=== PATIENT | female | born 1945 | race Caucasian/White ===

== ENCOUNTER 2016-11-15 19:53 | Observation (INO) | payer OTHER ==
[~2016-11-15] VITALS: Ht 152.4 cm; Wt 77.0 kg
[2016-11-15 21:04] LABS: ADD MIUA? NO; BILIRUBIN NEGATIVE; BLOOD NEGATIVE; COLOR STRAW ((YELLOW)); GLUCOSE (STRIP) NEGATIVE; KETONES NEGATIVE; LEUKOCYTES NEGATIVE; NITRITE NEGATIVE; PROTEIN (STRIP) NEGATIVE; SPECIFIC GRAVITY 1.011 (1.000-1.030); UCUL ADDED? NO; UROBILINOGEN 0.2 MG/DL (0.2-1.0)
[2016-11-15 21:11] LABS: BASOPHIL COUNT 0.1 K/uL (0-0.1); EOSINOPHIL (%) 3.7 % (0-5); EOSINOPHIL COUNT 0.3 K/uL (0-0.3); HEMATOCRIT 40.3 % (36.0-46.0); IMMATURE GRANULOCYTE (%) 0.3 % (0.0-0.7); IMMATURE GRANULOCYTE COUNT 0.3 K/uL; LYMPHOCYTE COUNT 2.6 K/uL (1.0-2.8); MCH 29.2 PG (29.0-34.0); MCV 88.4 FL (83-99); MEAN PLAT.VOLUME 11.9 uM^3 (9.5-12.4); MONOCYTE (%) 7.2 % (3-12); MONOCYTE COUNT 0.6 K/uL (0-0.8); NEUTROPHIL COUNT 5.2 K/uL (1.8-6.4); PLATELET COUNT 233 K/uL (156-360); RBC DIS.WIDTH-CV 12.8 % (11.8-14.6); RBC DIS.WIDTH-SD 40.1 % (39-53); RED BLOOD COUNT 4.56 M/uL (3.80-5.20); WHITE BLOOD COUNT 8.9 K/uL (4.1-10.2)
[2016-11-15 21:40] LABS: CHLORIDE 104 mEq/L (99-109); SODIUM 143 mEq/L (136-147)
[2016-11-15 21:42] LABS: GLUCOSE 136 mg/dL (70-99)
[2016-11-15 21:43] LABS: ANION GAP 14 MEQ/L (2-14)
[2016-11-15 21:44] LABS: TOTAL BILIRUBIN 0.2 mg/dL (0.0-1.0)
[2016-11-15 21:45] LABS: ALKALINE PHOSPHATASE 65 IU/L (3-129)
[2016-11-15 21:46] LABS: GFR ESTIMATE (CALCULATED) > 59 mL/min/
[2016-11-15 21:47] LABS: UREA NITROGEN (BUN) 16 mg/dL (9-23)
[2016-11-15 21:55] LABS: TROP-I INTERPRETATION NEGATIVE; TROPONIN-I < 0.01 ng/mL (0.0-0.30)
[2016-11-15 22:29] LABS: HDL CHOLESTEROL 48 MG/DL (Desirable>=50); LDL CHOLESTEROL 152 mg/dL (Desirable<100); NON-HDL CHOLESTEROL 190 mg/dL (Desirable<160); TOTAL CHOLESTEROL 238 mg/dL (Desirable<200); TRIGLYCERIDES 191 MG/DL (Normal: <150)
[2016-11-16] VITALS (7 sets, daily range): BP systolic 128–147; BP diastolic 64–79
[2016-11-16 08:24] LABS: POINT-OF-CARE METER ID UU14188625
[2016-11-16 11:48] LABS: POINT-OF-CARE METER ID UU14188625
[2016-11-17 03:57] VITALS: BP 132/54
[2016-11-17 07:39] VITALS: BP 114/77
[2016-11-17 08:07] LABS: Estimated Average Glucose 134 mg/dL (70-123); HEMOGLOBIN A1c (GLYCOHEMOGLOB) 6.3 % HGB (Below 5.7)
[2016-11-17 11:59] VITALS: BP 118/61
[2016-11-17] MEDS ORDERED: ASPIR 8181 M1 PO (12:52)
[2016-11-17] MEDS ORDERED: CLOPIDOGREL75 MG PO (12:53)
[2016-11-17] MEDS ORDERED: LISINOPRIL5 MG PO (12:53)
[2016-11-17] MEDS ORDERED: METFORMIN HCL500 MG PO (12:53)
[2016-11-17] MEDS ORDERED: PRAVACHOL40 MG PO (12:53)
== END 2016-11-17 16:55 | disposition home or self-care (01) ==
LOC: EME 19:53 → 5SOUTH 23:20 → EDOF 23:20 → 5SOUTH 11-16 00:18
PROVIDERS: Emergency Medicine; Family Medicine
DX: G45.9 Transient cerebral ischemic attack, unspecified (principal); R13.10 Dysphagia, unspecified; R47.81 Slurred speech; R47.1 Dysarthria and anarthria; R51 Headache; I10 Essential (primary) hypertension; E11.9 Type 2 diabetes mellitus without complications; E78.5 Hyperlipidemia, unspecified; K21.9 Gastro-esophageal reflux disease without esophagitis; E07.89 Other specified disorders of thyroid; Z87.891 Personal history of nicotine dependence; Z82.49 Family history of ischemic heart disease and other diseases of the circulatory system
CPT/HCPCS: 70450; 70551; 71020; 80053; 80061; 81003; 82948; 83036; 84484; 85025; 93005; 93880; 99281; 99285; G0378; J1650; J1815